=== PATIENT | female | born 1980 | race Caucasian/White ===

== ENCOUNTER 2023-11-17 21:39 | Emergency (ER) | payer OTHER ==
[~2023-11-17] VITALS: Ht 162.6 cm; Wt 54.4 kg
[2023-11-17 22:00] VITALS: BP 110/71; PULSE 79; RESP 17; TEMP 97.8; O2SAT 97
[2023-11-17 22:38] LABS: APPEARANCE,URINE CLEAR (CLEAR); BILIRUBIN,URINE NEGATIVE (NEGATIVE); BLOOD, URINE 2+ (NEGATIVE); COLOR,URINE YELLOW (YELLOW); LEUKOCYTE ESTERASE ,URINE TRACE (NEGATIVE); NITRITE, URINE NEGATIVE (NEGATIVE); PROTEIN,URINE NEGATIVE (NEGATIVE); UGLUCOSE NEGATIVE (NEGATIVE); UROBILINOGEN,URINE 0.2 EU/dL (0.2 - 1)
[2023-11-17 22:52] LABS: BACTERIA,URINE FEW /HPF (None Seen); HYALINE CASTS, URINE 0-10 /LPF (None Seen); MUCUS,URINE 1+ /LPF (None Seen); SQUAMOUS EPITHELIAL CELL,UR 20-50 /LPF (0-3 (FEW)); TRICHOMONAS,URINE None Seen /HPF (None Seen); URINE AMORPHOUS PHOSPHATES 2+ /HPF (None Seen); WBC,URINE 0-5 /HPF (0-5); YEAST,URINE None Seen /HPF (None Seen)
== END 2023-11-18 04:10 | disposition left against medical advice (07) ==
LOC: MED 21:39
DX: R10.30 Lower abdominal pain, unspecified (principal); Z53.21 Procedure and treatment not carried out due to patient leaving prior to being seen by health care provider
CPT/HCPCS: 81001; 81025; 99281